=== PATIENT | male | born 1965 | race Caucasian/White ===

== ENCOUNTER 2016-10-25 10:07 | Inpatient (IN) | payer BC, OTHER ==
[2016-10-25] VITALS (19 sets, daily range): BP systolic 114–154; BP diastolic 69–84; PULSE 58–94; RESP 15–22; TEMP 98.1
[~2016-10-25] VITALS: Ht 182.9 cm; Wt 88.1 kg
[~2016-10-25 10:07] MED LIST: CIPR500T4 PO; IBUP800T25 PO; VIC PO
[2016-10-25] MEDS ORDERED: SOD CHLORIDE 0.9% 1,000 ML IV STA (10:46)
[2016-10-25] MEDS ORDERED: KETOROLAC 15 MG INJ IV STA (10:46)
[2016-10-25 11:05] LABS: ADD SCAN DIFF NO
[2016-10-25 11:13] LABS: BASOPHIL # 0.1 10^3/ul (0.0-0.1); BASOPHILS % 0.2 % (0.0-2.0); HEMATOCRIT 44.2 % (42.0-52.0); HEMOGLOBIN 14.8 g/dl (14.0-18.0); LYMPHOCYTES # 1.1 10^3/ul (0.8-2.9); LYMPHOCYTES % 5.3 % (15.0-51.0); MEAN CORPUSCULAR HEMOGLOBIN 31.4 pg (29.0-33.0); MEAN CORPUSCULAR HGB CONC 33.5 g/dl (32.0-37.0); MEAN CORPUSCULAR VOLUME 93.8 fl (82.0-101.0); MEAN PLATELET VOLUME 9.8 fl (7.4-10.4); MONOCYTE # 1.3 10^3/ul (0.3-0.9); MONOCYTES % 6.3 % (0.0-11.0); NEUTROPHIL # 17.7 10^3/ul (1.6-7.5); NEUTROPHILS % 87.7 % (39.0-77.0); PLATELET COUNT 313 10^3/UL (140-415); RED BLOOD COUNT 4.71 10^6/ul (4.70-6.10); RED CELL DISTRIBUTION WIDTH 13.1 % (11.5-14.5); WHITE BLOOD COUNT 20.2 10^3/ul (4.8-10.8)
[2016-10-25 11:18] LABS: INR 1.15; PROTIME 14.7 Sec (12.2-14.2); PT RATIO 1.1
[2016-10-25 11:20] LABS: ALBUMIN 4.3 g/dl (3.3-4.9)
[2016-10-25 11:21] LABS: POTASSIUM 4.1 mmol/L (3.5-5.1)
[2016-10-25 11:23] LABS: ALBUMIN/GLOBULIN RATIO 1.3; CREATININE 1.03 mg/dl (0.61-1.24); TOTAL PROTEIN 7.6 g/dl (6.1-8.1)
[2016-10-25 11:24] LABS: CALCIUM 9.8 mg/dl (8.4-10.2)
--- NOTE | 2016-10-25 11:40 | RADRPT ---
PROCEDURE: CT Abdomen and pelvis without contrast. CLINICAL INDICATION: Abdominal Pain TECHNIQUE: CT scan of the abdomen and pelvis with contrast was performed on a multidetector high-r esolution CT scan. . Coronal and sagittal reformatted images were obtained from the axial source i mages. Standard CT scan of the abdomen pelvis without contrast protocols were performed. The total exam CTDI equals 10.29 mGy and the total exam DLP equals 648.91 mGy-cm. One or more of the following dose reduction techniques were used: - Automated exposure control. - Adjustment of the mA and/or kV according to patient size. Use of iterative reconstruction technique. COMPARISON: None FINDINGS: There are multiple bilateral nonobstructing renal calculi ranging between 2 and 4 mm. No evidence o f hydronephrosis bilaterally. No evidence of there are calcifications in the right left bony pelvis and there are likely all vascular in nature. Definite ureteral calculi are not demonstrated. Ther e is no hydroureter bilaterally. No intra renal masses bilaterally. The urinary bladder is unremark able. There is diverticular changes involving the distal descending and especially sigmoid colon. There is wall thickening of the mid to proximal sigmoid colon with adjacent induration and trace flu id as well as numerous punctate localized extraluminal foci of gas consistent with diverticulitis an d microperforation. Note that there is no localized fluid collection to suggest abscess. No other evidence of intra-abdominal free air. The remainder of the colon is unremarkable. The stomach and s mall bowel are unremarkable. The liver spleen pancreas and adrenal glands are normal in size configuration without focal lesions. The gallbladder is unremarkable and there is no evidence of bi liary ductal dilation. No evidence of abdominal or pelvic lymphadenopathy. The lung bases are unrema rkable. There is mild degenerative changes of the lower thoracic and lumbar spine. There are no ac [place] osseous findings. There is no evidence of osteoblastic/osteolytic lesions. The abdominal aorta is unremarkable. There is right inguinal fat-containing hernia but no herniated bowel or strangula tion. IMPRESSION: 1. Sigmoid diverticulitis with numerous punctate localized extraluminal foci of gas consistent with microperforation. Mild localized induration and trace fluid but no evidence of abscess. 2. Multiple bilateral nonobstructing small renal calculi. No hydronephrosis bilaterally. 3. Right inguinal fat-containing hernia but no herniated bowel or strangulation. Dr. Ortez was telephoned this results on 10/25/2016 and 1130 hours. RPTAT:AAJJ Francisco Rosas, Physician Date Time Electronically viewed and signed by Francisco Rosas, Physician on 10/25/2016 11:39 BM/
[2016-10-25 11:46] LABS: ADD UMIC YES; URINE BILIRUBIN (Dip) NEGATIVE (NEGATIVE); URINE BLOOD (Dip) 1+ (NEGATIVE); URINE COLOR LT. YELLOW (YELLOW); URINE GLUCOSE (Dip) NEGATIVE (NEGATIVE); URINE KETONES (Dip) 40 (NEGATIVE); URINE LEUKOCYTE ESTERASE (Dip) NEGATIVE (NEGATIVE); URINE NITRITE (Dip) NEGATIVE (NEGATIVE); URINE TOTAL PROTEIN (Dip) NEGATIVE (NEGATIVE); URINE UROBILINOGEN (Dip) 0.2 E.U./dL (0.1-1.0)
[2016-10-25 11:57] LABS: URINE RBCS 0-2 /HPF (0)
[2016-10-25 11:58] LABS: BACTERIA,URINE RARE
[2016-10-25] MEDS: SOD CHLORIDE 0.9% IVPB SCH ×3 (12:23→23:36)
[2016-10-25] MEDS: PIPERACILLIN IVPB SCH ×3 (12:23→23:36)
[2016-10-25] MEDS: TAZO IVPB SCH ×3 (12:23→23:36)
--- NOTE | 2016-10-25 12:55 | ERA ---
ER Documentation Chief Complaint Date/Time DATE: 10/25/16 TIME: 12:30 Chief Complaint ABD PAIN X 2 DAYS , WAS SEEN HERE YESTERDAY , RX FOR UTI , NO RELIEF HPI This is a 51-year-old man complaining of suprapubic and mid abdominal pain beginning last night after discharge from this emergency department. He states he came to the emergency department last night for suprapubic abdominal pain and recent increased urinary frequency, and after evaluation in the ED he was diagnosed with UTI and given a dose of oral ciprofloxacin. He states an hour after getting home he developed sharp severe mid abdominal pain which radiated upward and felt abdominal "pressure". This pain continued until this morning and he came here for reevaluation. He states last month he was diagnosed with acute diverticulitis at an urgent care facility at that time he had diarrhea and left lower quadrant abdominal pain. He was treated as an outpatient with ciprofloxacin and metronidazole 2 weeks which he used completely. He states he has been pain-free for the last 2 weeks but has had intermittent tactile fevers and chills. Patient denies hematuria, no chest pain or shortness of breath, no dizziness or loss of consciousness, no headache or blurry vision. Patient denies penile discharge. ROS All systems reviewed and are negative except as per history of present illness. Medications Home Meds Active Scripts Ciprofloxacin Hcl* (Ciprofloxacin Hcl*) 500 Mg Tablet, 500 MG PO BID for 3 Days , TAB Prov:FRANCESCA AMAYA DO 10/24/16 Ibuprofen* (Motrin*) 800 Mg Tab, 800 MG PO Q6H Y for PAIN AND OR ELEVATED TEMP, #30 TAB Prov:FRANCESCA AMAYA DO 10/24/16 Discontinued Reported Medications Acetaminophen/Hydrocodone (Vicodin) 1 Tab Tab, 1 TAB PO 09/21/11 Allergies Allergies: Coded Allergies: No Known Allergy (Unverified , 09/21/11) PMhx/Soc History of Surgery: No (HERNIA REPAIR, KIDNEY STONE ) Hx Miscellaneous Medical Probl: No (NO MEDICAL PROBLEMS ) Hx Alcohol Use: Yes Hx Substance Use: No Hx Tobacco Use: No Smoking Status: Never smoker FmHx Family History: No diabetes Physical Exam Vitals Vital Signs Date Time Temp Pulse Resp B/P Pulse Ox O2 Delivery O2 Flow Rate FiO2 10/25/16 12:13 98.1 108 18 175/98 100 Room Air 10/25/16 10:10 98.1 100 18 148/94 98 Physical Exam GENERAL: Well-developed, well-nourished, well-hydrated, in no apparent distress , looks nontoxic in appearance. Afebrile HEENT: Moist mucous membranes, pink conjunctiva, no cervical spine tenderness or step-off deformities, no goiter, no jaundice or icterus, extraocular movements intact without pain. No submandibular induration, and no pharyngeal erythema NEURO: Alert and oriented 3, cranial nerves II through XII intact bilaterally, pupils equal round reactive to light, no focal deficits or facial asymmetry, sensation intact distally Strength 5/5 in upper and lower extremities bilaterally CARDIAC: Tachycardic and regular, no murmurs rubs or gallops LUNGS: Clear bilaterally no wheezing crackles or stridor ABDOMEN: Mild tenderness to touch over the hypogastrium with voluntary guarding , no rigidity SKIN: Warm and dry to touch, no abrasions, contusions, or hematomas, no lacerations, no ecchymosis, no target lesions, and without ulcers EXTREMITIES: No clubbing cyanosis or edema, calves are bilaterally symmetrical, no Homans sign, no popliteal cord sign. Distal pulses equal and bilateral PSYCH: Normal affect without agitation or irritability Result Diagram: 10/25/16 1055 10/25/16 1055 Results 24 hrs Laboratory Tests Test 10/25/16 10:31 10/25/16 10:55 Urine Bacteria RARE Urine Bilirubin NEGATIVE Urine Clarity CLEAR Urine Color LT. YELLOW Urine Epithelial Cells RARE Urine Glucose NEGATIVE% Urine Hemoglobin 1+ Urine Ketones 40 Urine Leukocyte Esterase NEGATIVE Urine Microscopic RBC 0-2/HPF Urine Microscopic WBC 0-2/HPF Urine Nitrite NEGATIVE Urine Specific [place] 1.015 Urine Total Protein NEGATIVE Urine Urobilinogen 0.2 E.U./dL Urine pH 6.0 Alanine Aminotransferase (ALT/SGPT) 27IU/L Albumin 4.3g/dl Albumin/Globulin Ratio 1.30 Alkaline Phosphatase 87IU/L Anion Gap 18 Aspartate Amino Transf (AST/SGOT) 20IU/L Basophils # 0.110^3/ul Basophils % 0.2% Blood Urea Nitrogen 11mg/dl Calcium Level 9.8mg/dl Carbon Dioxide Level 24mmol/L Chloride Level 100mmol/L Creatinine 1.03mg/dl Direct Bilirubin 0.00mg/dl Eosinophils # 0.010^3/ul Eosinophils % 0.0% Globulin 3.30g/dl Glucose Level 171mg/dl Hematocrit 44.2% Hemoglobin 14.8g/dl INR International Normalized Ratio 1.15 Indirect Bilirubin 1.0mg/dl Lipase 24U/L Lymphocytes # 1.110^3/ul Lymphocytes % 5.3% Mean Corpuscular Hemoglobin 31.4pg Mean Corpuscular Hemoglobin Concent 33.5g/dl Mean Corpuscular Volume 93.8fl Mean Platelet Volume 9.8fl Monocytes # 1.310^3/ul Monocytes % 6.3% Neutrophils # 17.710^3/ul Neutrophils % 87.7% Nucleated Red Blood Cells # 0.010^3/ul Nucleated Red Blood Cells % 0.0/100WBC Platelet Count 81935^3/UL Potassium Level 4.1mmol/L Prothrombin Time 14.7Sec Prothrombin Time Ratio 1.1 Red Blood Count 4.7110^6/ul Red Cell Distribution Width 13.1% Sodium Level 138mmol/L Total Bilirubin 1.0mg/dl Total Protein 7.6g/dl White Blood Count 20.210^3/ul Current Medications Medications (Trade) Dose Ordered Sig/Nasra Route PRN Reason Start Time Stop Time Status Last Admin Dose Admin Sodium Chloride (NS) 1,000 ml @ 1,000 mls/hr Q1H STAT IV 10/25/16 10:46 10/25/16 11:45 DC 10/25/16 11:25 Ketorolac Tromethamine 15 mg 15 mg ONCE STAT IV 10/25/16 10:46 10/25/16 10:48 DC 10/25/16 11:25 Piperacillin Sod/ Tazobactam Sod/ Sodium Chloride (Zosyn/NS) 100 ml @ 200 mls/hr Q8 IVPB 10/25/16 12:00 10/25/16 12:23 Procedures/MDM IV line was established patient was placed on groundwater monitoring technician rhythm strip revealed a sinus tachycardia at 110 bpm with upright P and T waves. Patient was afebrile. I administered 1 L normal saline intravenously and Toradol 15 mg IV 1. EKG performed, read by me: 97 bpm, normal sinus rhythm, normal axis, no acute ST segment changes, narrow QRS complex, with good R-wave progression in precordial leads. CT scan of abdomen and pelvis was performed revealing perforated acute sigmoid diverticulitis with free air. No abscess identified. Please refer to radiologist dictation for full report. I obtained emergent surgical consultation with Dr. Mauricio. He saw the patient at the bedside and recommended emergent open laparotomy. I ordered and administered Pipracil and tazobactam 4.5 g IV 1 CBC revealed a leukocytosis at 20, electrolytes were unremarkable, liver function tests were normal, coagulation profile was normal. Urinalysis was unremarkable. Departure Diagnosis: Primary Impression: Perforation of sigmoid colon due to diverticulitis FERNIE FUENTES MD Oct 25, 2016 12:40
[2016-10-25] MEDS ORDERED: LABETALOL HCL 20MG INJ IV PRN (13:30)
[2016-10-25] MEDS ORDERED: HYDROmorphONE (0.2 MG/ML) 10ML SYG IV PRN ×2 (13:30)
[2016-10-25] MEDS ORDERED: FENTAnyl 50 MCG/ML VIAL IV PRN ×2 (13:30)
[2016-10-25] MEDS ORDERED: METOCLOPRAMIDE 10 MG INJ IV PRN (13:30)
[2016-10-25] MEDS ORDERED: ONDANSETRON 4 MG INJ IV PRN ×2 (13:30→18:00)
[2016-10-25] MEDS ORDERED: MIDAZOLAM 1 MG/ML 2 ML INJ IV PRN (13:30)
[2016-10-25] MEDS ORDERED: EPHEDrine SULFATE 50 MG/5 ML SYG IV PRN (13:30)
[2016-10-25] MEDS ORDERED: MEPERIDINE 25 MG INJ IV PRN (13:30)
[2016-10-25] MEDS ORDERED: morphine (1 MG/ML) 10ML SYRINGE IV PRN ×2 (13:30)
[2016-10-25] MEDS ORDERED: hydrALAzine 20 MG INJ IV PRN (13:30)
[2016-10-25] MEDS ORDERED: DIPHENHYDRAMINE 50 MG INJ IV PRN (13:30)
[2016-10-25] MEDS ORDERED: ROCURONIUM 50 MG INJ ONE (13:32)
[2016-10-25] MEDS ORDERED: GLYCOPYRROLATE 0.4 MG INJ ONE (13:32)
[2016-10-25] MEDS ORDERED: PROPOFOL 20 ML ONE (13:32)
[2016-10-25] MEDS ORDERED: LIDOCAINE 2% (SDV) 5 ML INJ ONE (13:32)
[2016-10-25] MEDS ORDERED: SUCCINYLCHOLINE CHLORIDE 100 MG/5 ML SYG IV ONE (13:32)
[2016-10-25] MEDS ORDERED: NEOSTIGMINE 3 MG/3 ML SYRINGE ONE (13:32)
[2016-10-25] MEDS ORDERED: MEPERIDINE 100 MG INJ ONE (13:32)
[2016-10-25] MEDS ORDERED: CEFAZOLIN 1 GM INJ ONE (13:53)
[2016-10-25] MEDS ORDERED: metroNIDAZOLE 500 MG/NS (PMX) 100 ML IVPB ONE (13:53)
[2016-10-25] MEDS ORDERED: NALOXONE (0.4 MG/ML) INJ IV PRN (15:00)
[2016-10-25] MEDS ORDERED: OXYCODONE/ACETAMINOPHEN (5/325) TAB PO PRN ×2 (15:00)
[2016-10-25] MEDS ORDERED: KETOROLAC 30 MG INJ IV PRN (15:00)
[2016-10-25] MEDS: HYDROmorphONE 0.2 MG/ML PCA IV SCH ×2 (15:11→16:18)
--- NOTE | 2016-10-25 15:57 | HP ---
DATE OF ADMISSION: 10/25/2016 TYPE OF CONSULTATION: Surgical. REASON FOR CONSULTATION: Perforated diverticulitis. HISTORY OF PRESENT ILLNESS: The patient is an otherwise healthy and fit 51-year-old male who has be en being treated for acute diverticulitis. Apparently he responded nicely, but yesterday he present ed to the emergency room with urinary-like symptoms. He was treated empirically for urinary tract i nfection with Cipro. However, last night at approximately 8:00 p.m., he developed sudden severe ons et of left lower quadrant abdominal pain which had been different from the pain he has experienced e ither with this previous diverticulitis or with his urinary-like symptoms yesterday. CT scan showed a perforated sigmoid diverticulitis with a perforated sigmoid diverticulitis with extraluminal air, but no free pneumoperitoneum. Of note, is the fact that the patient's white count is 20,000. He h as had no fevers or chills. The patient's abdominal symptoms have been progressively getting worse. He is, however, awake and alert and hemodynamically stable. PAST MEDICAL HISTORY: As noted above. REVIEW OF SYSTEMS: HEAD, EARS, EYES, NOSE AND THROAT: Unremarkable. PULMONARY: No history of pneumonia or shortness of breath or asthma. CARDIAC: No history of chest pain, [place] or arrhythmia. ABDOMEN: The patient has a history of hernia repair as well as lithotripsy. EXTREMITIES: Unremarkable. OUTPATIENT MEDICATIONS: 1. Cipro. 2. Vicodin. ALLERGIES: NONE. PHYSICAL EXAMINATION: GENERAL: The patient is a fit-appearing 51-year-old male who is awake and alert and in no acute dis tress. HEAD, EARS, EYES, NOSE, THROAT: Within normal limits. LUNGS: Clear. HEART: Regular rhythm. ABDOMEN: Exquisitely tender in the left lower quadrant with guarding and plus/minus rebound. EXTREMITIES: Unremarkable. LABORATORY DATA: Patient's hematocrit is 44 with a white count of 20,200 and a left shift with 87 p olys. BUN, glucose, electrolytes are unremarkable. INR is 1.15. CT as noted above. IMPRESSION: Perforated sigmoid diverticulitis. PLAN: The patient will require exploratory laparotomy with partial colectomy and a temporary colost kavya. I have discussed the above in great detail with the patient and , who now have a reasonabl e understanding of the nature of his situation and agree to the proposed plan of therapy as outlined . Dictated By: NICHOLAS MUSA/ANNA Conf#: [id number] DID#: [id number]
[2016-10-25] MEDS ORDERED: NACL 0.9% 3 ML SYG IV SCH (16:00)
--- NOTE | 2016-10-25 16:08 | HP ---
Date/Time of Note Date/Time of Note DATE: 10/25/16 TIME: 15:59 Assessment/Plan VTE Prophylaxis VTE Prophylaxis Intervention: SCD's Lines/Catheters IV C[facility]ter Type [facility] Peripheral IV Urinary Cath still in place: No Assessment/Plan Chief Complaint/Hosp Course Impression and plan 1. Sigmoid diverticulitis with perforation. She is status post surgical intervention with temporary colostomy put in place. Follow-up with surgical recommendations. Continue postop care and analgesics. Continue IV hydration. Advance diet per surgeon 2. History of dyslipidemia. Follow-up on lipid panel. 3. Leukocytosis secondary to #1. Continue antibiotics for now. Monitor for fevers DVT prophylaxis: SCDs GERD prophylaxis: PPI Admission process 40 minutes Discussed plan of care with Dr. Merida Problems: HPI/ROS Admit Date/Time Admit Date/Time Oct 25, 2016 at 12:10 Hx of Present Illness This is a 51-year-old male with reported past medical history of dyslipidemia who came to [facility] secondary to reports of abdominal pain. According to the patient he had diverticulitis roughly around September and received 7 day antibiotic course for this. Reported that he did have some relief but still felt a little discomfort on his abdomen. He would follow up with his primary care provider as outpatient and did have laboratory blood work draw which came back unremarkable with no significant findings. Patient still presented with discomfort on his lower abdominal area. Last night patient to go to [facility] for further evaluation of his mid lower abdominal pain. He was told at that time he had urinary tract infection and antibiotic however after 1 hour from being home he had more diffuse pain and came back to [facility] for further evaluation. Patient did deny any chest pain or shortness of breath however he did have some little reports of nausea and abdominal pain. Patient did have CT scan of his abdomen that did show sigmoid diverticulitis with numerous punctate localized extraluminal foci of gas consistent with microperforation. No evidence of abscess seen. Patient also seen with incidental multiple bilateral nonobstructing small renal calculi. Patient was also noted with a white blood cell count of 20.2. He remained afebrile during admission. He was seen by general surgeon and did receive exploratory laparotomy with partial colon resection with temporary colostomy. Patient did tolerate procedure well. He was seen in PACU during evaluation. Vital signs stable. We will evaluate him for the aformentioned issues ROS 12 point review of systems obtained and entirely negative except that mentioned in history of present illness PMH/Family/Social Past Medical History Medical/surgical history 1. No calculi 2 dyslipidemia Family History Significant Family History: no pertinent family hx Social History Alcohol Use: occasionally Smoking Status: Never smoker Drug Use: none Exam/Review of Systems Vital Signs Vitals Vital Signs Date Time Temp Pulse Resp B/P Pulse Ox O2 Delivery O2 Flow Rate FiO2 10/25/16 15:38 76 19 133/76 100 Nasal Cannula 2.0 10/25/16 15:06 99.0 Exam Exam General: Status post surgical intervention. Appears comfortable at present Eyes: Pupils equal round react to light Neck: Supple nontender, no JVD Cardiac: S1-S2 auscultated regular rate Pulmonary: No adventitious lung sounds auscultated at this time GI: Minimally tender upon palpation status post surgical intervention with temporary colostomy Extremities: No edema noted bilateral lower extremities Skin: Surgical site clean dry and intact Neurologic: Alert oriented 3 Labs Result Diagram: 10/25/16 1055 10/25/16 1055 Medications Medications Current Medications Piperacillin Sod/ Tazobactam Sod/ Sodium Chloride (Zosyn/NS) 100 ml @ 200 mls/ hr Q8 IVPB Last administered on 10/25/16 12:23; Admin Dose 200 MLS/HR; Start at 12:00 Naloxone HCl (Narcan) 0.2 mg PRN PRN IV DECREASED REPIRATORY RATE; Start at 15:00 Hydromorphone HCl (Dilaudid MEDICAL ASSISTING PROGRAM DIRECTOR) Q4PCA IV Last administered on 10/25/16 15:11 ; Admin Dose 6 MG; Start 10/25/16 at 15:00 Oxycodone/ Acetaminophen (Percocet (5/ 325)) 1 tab Q4H PRN PO PAIN LEVEL 1-5; Start 10/25/16 at 15:00 Oxycodone/ Acetaminophen (Percocet (5/ 325)) 2 tab Q4H PRN PO PAIN LEVEL 6-10; Start 10/25/16 at 15:00 Ketorolac Tromethamine (Toradol) 30 mg Q6H PRN IV PAIN; Start 10/25/16 at 15:00 ; Stop 10/28/16 at 14:59 Ondansetron HCl (Zofran Inj) 4 mg Q6H PRN IV NAUSEA AND/OR VOMITING; Start 10/25 at 15:00 Diphenhydramine HCl (Benadryl) 25 mg Q6H PRN IV ITCHING; Start 10/25/16 at 15:00 Miscellaneous Information 1. Discontinue MEDICAL ASSISTING PROGRAM DIRECTOR... MEDICAL ASSISTING PROGRAM DIRECTOR IV ; Start 10/25/16 at 15:00 Acetaminophen/ Hydrocodone Bitart ([place] (5325)) 1 tab Q6H PRN PO PAIN LEVEL 6 -10; Start 10/25/16 at 18:00; Status Future Hold Acetaminophen/ Hydrocodone Bitart ([place] (10325)) 1 tab Q6H PRN PO PAIN LEVEL 6-10; Start 10/25/16 at 18:00; Status Future Hold Metoclopramide HCl (Reglan) 10 mg Q6H PRN IV NAUSEA AND/OR VOMITING; Start 10/25 at 18:00 Pantoprazole 40 mg 40 mg DAILY@06 IV ; Start 10/26/16 at 06:00 Potassium Chloride/Dextrose/ Sod Cl (D5-NS + KCl 20 Meq) 1,000 ml @ 100 mls/hr Q10H IV ; Start 10/25/16 at 14:51 Enoxaparin Sodium (Lovenox) 40 mg DAILY@07 SC ; Start 10/26/16 at 07:00 Zolpidem Tartrate (Ambien) 5 mg PRN PRN PO SLEEP; Start 10/25/16 at 18:00 Morphine Sulfate 2 mg 2 mg Q2H PRN IV PAIN; Start 10/25/16 at 18:00; Status Future Hold Cefazolin Sodium 50 ml @ 100 mls/hr Q8 IVPB ; Start 10/25/16 at 22:00 Metronidazole (Flagyl 500 Mg (Pmx)) 100 ml @ 100 mls/hr Q8 IVPB ; Start at 22:00 Ondansetron HCl (Zofran Inj) 4 mg Q6H PRN IV NAUSEA AND/OR VOMITING; Start 10/25 at 18:00 Acetaminophen (Tylenol Tab) 650 mg Q6H PRN PO PAIN LEVEL 1-3 OR FEVER; Start at 18:00 Acetaminophen (Tylenol Supp) 650 mg Q6H PRN DC PAIN LEVEL 1-3 OR FEVER; Start 10/25/16 at 18:00 Morphine Sulfate (morphine) 4 mg Q2H PRN IV PAIN; Start 10/25/16 at 18:00; Status Future Hold CAMELIA MERCADO Oct 25, 2016 16:08
[2016-10-25] MEDS: D5-NS + KCL 20 MEQ 1,000 ML IV SCH (16:15)
--- NOTE | 2016-10-25 16:32 | OPR ---
DATE OF OPERATION: 10/25/2016 POSTOPERATIVE DIAGNOSIS: Perforated diverticulitis. OPERATION PERFORMED: Sigmoid colon resection with end colostomy. SURGEON: Nicholas Mauricio MD ANESTHESIA: General. ANESTHESIOLOGIST: Dr. Hardeep MD OPERATIVE REPORT: After satisfactory general anesthesia was achieved, a Hansen catheter was placed a nd the abdomen was prepped and draped. The abdomen was entered through a lower vertical midline inc ision. Abdominal exploration showed a perforated loop of sigmoid with mesenteric abscess. This abs cess was then entered and suctioned off and cultured. The colon distal to the involved segment was divided with a contour stapler. The colon proximal to the involved segment was divided with the 75 mm green DENZEL stapler. The mesentery to the involved segment was divided with impact LigaSure. A encarnacion ture was placed on the distal colon for identification purposes. The sigmoid was thus submitted. H emostasis was total. Through a circular stab in the left lower quadrant, the proximal colon was bro ught up as an end colostomy. The abdomen was then closed in layers. The posterior rectus sheath an d peritoneum were closed with running #1 Vicryl. Anterior rectus sheath and fascia were closed with interrupted #2 Vicryl suture. Skin was closed with huseyin. The colostomy was matured primarily. It was secured at 4 corners with a 4-0 Vicryl to skin. The staple line was excised and circumferen tial row of seromuscular to skin sutures were made achieving a colostomy which was tension free and well vascularized. OPERATIVE BLOOD LOSS: Less than 50 mL. Sponge, needle and instrument counts: Reported as correct x2. The patient tolerated the procedure well and without incident or complication. Dictated By: NICHOLAS MUSA/ANNA Conf#: [id number] DID#: [id number]
[2016-10-25] MEDS ORDERED: HYDROCODONE/APAP (5/325) TAB PO PRN (18:00)
[2016-10-25] MEDS ORDERED: ACETAMINOPHEN 650 MG SUPP PR PRN (18:00)
[2016-10-25] MEDS ORDERED: HYDROCODONE/APAP (10/325) TAB PO PRN (18:00)
[2016-10-25] MEDS ORDERED: morphine 2 MG INJ IV PRN ×2 (18:00)
[2016-10-25] MEDS ORDERED: ZOLPIDEM 5 MG TAB PO PRN (18:00)
[2016-10-25] MEDS ORDERED: ACETAMINOPHEN 325 MG TAB PO PRN (18:00)
[2016-10-25] MEDS: ONDANSETRON 4 MG INJ IV PRN (20:52)
[2016-10-25] MEDS: CEFAZOLIN 1 GM/50 ML (PMX) 50 ML IVPB SCH (21:06)
[2016-10-25] MEDS ORDERED: CEFAZOLIN 1 GM/50 ML (PMX) 50 ML IVPB SCH (22:00)
[2016-10-25] MEDS: metroNIDAZOLE 500 MG/NS (PMX) 100 ML IVPB SCH (22:00)
[2016-10-26] MEDS: D5-NS + KCL 20 MEQ 1,000 ML IV SCH ×3 (00:51→20:38)
[2016-10-26 05:20] LABS: ADD SCAN DIFF NO
[2016-10-26 05:36] LABS: BASOPHILS % 0.2 % (0.0-2.0); EOSINOPHILS % 0.1 % (0.0-7.0); HEMATOCRIT 36.9 % (42.0-52.0); HEMOGLOBIN 12.2 g/dl (14.0-18.0); LYMPHOCYTES # 1.1 10^3/ul (0.8-2.9); MEAN CORPUSCULAR HEMOGLOBIN 31.5 pg (29.0-33.0); MEAN CORPUSCULAR HGB CONC 33.1 g/dl (32.0-37.0); MEAN CORPUSCULAR VOLUME 95.3 fl (82.0-101.0); MEAN PLATELET VOLUME 9.9 fl (7.4-10.4); MONOCYTE # 1.1 10^3/ul (0.3-0.9); MONOCYTES % 8.8 % (0.0-11.0); NEUTROPHIL # 10.2 10^3/ul (1.6-7.5); NEUTROPHILS % 81.5 % (39.0-77.0); PLATELET COUNT 288 10^3/UL (140-415); RED BLOOD COUNT 3.87 10^6/ul (4.70-6.10); RED CELL DISTRIBUTION WIDTH 13.2 % (11.5-14.5); WHITE BLOOD COUNT 12.5 10^3/ul (4.8-10.8)
[2016-10-26 05:48] LABS: ALBUMIN 3.5 g/dl (3.3-4.9)
[2016-10-26 05:49] LABS: POTASSIUM 4.4 mmol/L (3.5-5.1)
[2016-10-26 05:51] LABS: ALBUMIN/GLOBULIN RATIO 1.29; BILIRUBIN,INDIRECT 0.8 mg/dl (0-1.1); BILIRUBIN,TOTAL 0.8 mg/dl (0.2-1.3); CREATININE 1.03 mg/dl (0.61-1.24); TOTAL PROTEIN 6.2 g/dl (6.1-8.1)
[2016-10-26 05:52] LABS: CALCIUM 8.7 mg/dl (8.4-10.2); CHOL/HDL RATIO 4.1 RATIO; MAGNESIUM 2.1 mg/dl (1.7-2.5); PHOSPHORUS 2.5 mg/dl (2.5-4.9); POTASSIUM 4.7 mmol/L (3.5-5.1)
[2016-10-26] MEDS: CEFAZOLIN 1 GM/50 ML (PMX) 50 ML IVPB SCH ×3 (05:53→22:23)
[2016-10-26] MEDS: PANTOPRAZOLE 40 MG INJ IV SCH (05:53)
[2016-10-26 05:54] LABS: CREATININE 0.98 mg/dl (0.61-1.24)
[2016-10-26 05:55] LABS: CALCIUM 8.7 mg/dl (8.4-10.2)
[2016-10-26 05:57] LABS: T3 UPTAKE 44.9 % (23.5-40.5)
[2016-10-26 06:12] LABS: THYROID STIMULATING HORMONE 2.22 MIU/L (0.465-4.680)
[2016-10-26] MEDS: ENOXAPARIN 40 MG/0.4 ML SYG SC SCH (06:35)
[2016-10-26] MEDS: metroNIDAZOLE 500 MG/NS (PMX) 100 ML IVPB SCH ×3 (06:36→22:22)
[2016-10-26 07:20] VITALS: BP 146/82; RESP 18
[2016-10-26] MEDS: TAZO IVPB SCH (07:31)
[2016-10-26] MEDS: PIPERACILLIN IVPB SCH (07:31)
[2016-10-26] MEDS: SOD CHLORIDE 0.9% IVPB SCH (07:31)
[2016-10-26] MEDS: ONDANSETRON 4 MG INJ IV PRN (09:22)
[2016-10-26] MEDS: METOCLOPRAMIDE 10 MG INJ IV PRN ×2 (10:28→17:56)
--- NOTE | 2016-10-26 11:51 | PN ---
DATE: 10/26/2016 TIME OF EVALUATION: 10 a.m. SUBJECTIVE DATA: Complains of abdominal pain. Remains on a Dilaudid DATA ANALYST REPORT WRITER pump. OBJECTIVE DATA: VITAL SIGNS: Temperature 97.9, pulse rate 86, respiratory rate 20, blood pressure 146/82, oxygen saturation 98% on low flow O2. GENERAL: This is a well-built, well-nourished male patient lying in bed in no apparent distress. HEENT: Head normocephalic and atraumatic. Eyes: Anicteric sclerae. Conjunctivae clear. ENT: Nasal septum is midline. Oral mucosa is moist. NECK: Supple. No JVD noticed. RESPIRATORY: Bilaterally clear to auscultation. No adventitious breath sounds. No rales. No use of accessory muscles of respiration. CARDIAC: Regular rate and rhythm. No murmurs heard. ABDOMEN: Left lower quadrant colostomy in place. Dressing over the surgical incision. GENITOURINARY: Deferred. EXTREMITIES: No cyanosis, no clubbing, no edema. Peripheral pulses are palpable. NEUROLOGIC: The patient is awake, alert and oriented. Cranial nerves are grossly intact. LABORATORY AND DIAGNOSTIC DATA: WBC 12.5, hemoglobin 12.2, hematocrit 36.9, platelet count 288. Sodium 130, potassium 4.4, chloride 100, carbon dioxide 28 , anion gap 14, BUN 8, creatinine 1.06, glucose 136, calcium 8.7, phosphorus 2.5 , magnesium 2.1. ASSESSMENT AND PLAN: 1. Perforated diverticulitis. Status post sigmoid colon resection with end colostomy. Continue postoperative care. Encourage frequent ambulation. Encourage use of incentive spirometry Advancement of diet as per general surgery. 2. Leukocytosis, most probably secondary to #1. Continue antibiotics. The patient remains afebrile. 3. Normocytic normochromic anemia. We will monitor the H and H closely. Etiology unclear. 4. Fluid, electrolytes and nutrition. Continue clear liquid diet. Advancement of diet as per surgery. 5. Deep vein thrombosis prophylaxis with bilateral sequential compression devices. 6. Gastrointestinal prophylaxis with proton pump inhibitors. PLAN: 1. Continue incentive spirometry. 2. Encourage frequent ambulation. 3. Advancement of diet as per surgery. 4. Discontinue Hansen catheter. The case was discussed with Dr. Carroll. DON CARROLL MD, AM/ANNA Conf#: [id number] [facility]#: [id number] MTDD
--- NOTE | 2016-10-26 13:19 | PN ---
DATE: 10/26/2016 SUBJECTIVE: Postoperative day #1. Patient is markedly symptomatically improved. He has been afebr ile since surgery. His white count has come down to 12,500. OBJECTIVE: his abdominal examination is benign. The incision is clean, and the colostomy is viable. The Hansen has been removed. PLAN: Continue medical management. Dictated By: NICHOLAS MUSA/ANNA Conf#: [id number] DID#: [id number]
[2016-10-26] MEDS ORDERED: morphine 4 MG/ML VIAL IV PRN ×2 (16:30→17:00)
[2016-10-26] MEDS ORDERED: morphine 2 MG INJ IV PRN (17:00)
[2016-10-26] MEDS ORDERED: HYDROCODONE/APAP (5/325) TAB PO PRN ×2 (17:00)
[2016-10-26 19:28] VITALS: BP 148/87; RESP 16
[2016-10-26] MEDS: BISACODYL (EC) 5 MG TAB PO ONE ×2 (20:39→21:00)
[2016-10-27] MEDS: ONDANSETRON 4 MG INJ IV PRN (01:30)
[2016-10-27] MEDS: metroNIDAZOLE 500 MG/NS (PMX) 100 ML IVPB SCH (05:44)
[2016-10-27] MEDS: PANTOPRAZOLE 40 MG INJ IV SCH (05:44)
[2016-10-27] MEDS: D5-NS + KCL 20 MEQ 1,000 ML IV SCH ×2 (06:31→18:31)
[2016-10-27] MEDS: ENOXAPARIN 40 MG/0.4 ML SYG SC SCH (06:32)
[2016-10-27] MEDS: CEFAZOLIN 1 GM/50 ML (PMX) 50 ML IVPB SCH (06:37)
--- NOTE | 2016-10-27 07:30 | PN ---
Date/Time of Note Date/Time of Note DATE: 10/27/16 TIME: 07:29 Assessment/Plan VTE Prophylaxis VTE Prophylaxis Intervention: SCD's Lines/Catheters IV [facility]from [facility]): Peripheral IV Urinary Cath still in place: No Assessment/Plan Chief Complaint/Hosp Course 1. Perforated diverticulitis. Status post sigmoid colon resection with end colostomy. Continue postoperative care. Encourage frequent ambulation. Encourage use of incentive spirometry Advancement of diet as per general surgery. 2. Leukocytosis. Most probably secondary to #1. Continue antibiotics. The patient remains afebrile. 3. Normocytic, normochromic anemia. Will monitor the H and H closely. Etiology unclear. Transfuse as needed. 4. Fluid, electrolytes and nutrition. Advancement of diet as per surgery. 5. Deep vein thrombosis prophylaxis with bilateral sequential compression devices. 6. Gastrointestinal prophylaxis with proton pump inhibitors. PLAN: 1. Continue incentive spirometry. 2. Encourage frequent ambulation. 3. Advancement of diet as per surgery. The case was discussed with Dr. Carroll. Problems: Subjective 24 Hr Interval Summary Free Text/Dictation Complains of sore throat. Had multiple episodes of vomiting last night. Exam/Review of Systems Vital Signs Vitals Vital Signs Date Time Temp Pulse Resp B/P Pulse Ox O2 Delivery O2 Flow Rate FiO2 10/26/16 19:28 100.4 94 16 148/87 96 10/26/16 08:10 Nasal Cannula 2.0 Intake and Output 10/26/16 10/26/16 10/27/16 15:00 23:00 07:00 Intake Total 2380 ml 600 ml Output Total 3550 ml 1400 ml Balance -1170 ml -800 ml Exam GENERAL: This is a well-built, well-nourished male patient lying in bed in no apparent distress. HEENT: Head normocephalic and atraumatic. Eyes: Anicteric sclerae. Conjunctivae clear. ENT: Nasal septum is midline. Oral mucosa is moist. NECK: Supple. No JVD noticed. RESPIRATORY: Bilaterally clear to auscultation. No adventitious breath sounds. No rales. No use of accessory muscles of respiration. CARDIAC: Regular rate and rhythm. No murmurs heard. ABDOMEN: Left lower quadrant colostomy in place. Dressing over the surgical incision. GENITOURINARY: Deferred. EXTREMITIES: No cyanosis, no clubbing, no edema. Peripheral pulses are palpable. NEUROLOGIC: The patient is awake, alert and oriented. Cranial nerves are grossly intact. Results Result Diagram: 10/26/16 0415 10/26/16 0415 Medications Medications Current Medications Naloxone HCl (Narcan) 0.2 mg PRN PRN IV DECREASED REPIRATORY RATE; Start at 15:00 Oxycodone/ Acetaminophen (Percocet (5/ 325)) 1 tab Q4H PRN PO PAIN LEVEL 1-5; Start 10/25/16 at 15:00 Oxycodone/ Acetaminophen (Percocet (5/ 325)) 2 tab Q4H PRN PO PAIN LEVEL 6-10; Start 10/25/16 at 15:00 Ketorolac Tromethamine (Toradol) 30 mg Q6H PRN IV PAIN; Start 10/25/16 at 15:00 ; Stop 10/28/16 at 14:59 Ondansetron HCl (Zofran Inj) 4 mg Q6H PRN IV NAUSEA AND/OR VOMITING Last administered on 10/27/16 01:30; Admin Dose 4 MG; Start 10/25/16 at 15:00 Diphenhydramine HCl (Benadryl) 25 mg Q6H PRN IV ITCHING; Start 10/25/16 at 15:00 Metoclopramide HCl (Reglan) 10 mg Q6H PRN IV NAUSEA AND/OR VOMITING Last administered on 10/26/16 17:56; Admin Dose 10 MG; Start 10/25/16 at 18:00 Pantoprazole 40 mg 40 mg DAILY@06 IV Last administered on 10/27/16 05:44; Admin Dose 40 MG; Start 10/26/16 at 06:00 Potassium Chloride/Dextrose/ Sod Cl (D5-NS + KCl 20 Meq) 1,000 ml @ 100 mls/hr Q10H IV Last administered on 10/27/16 06:31; Admin Dose 100 MLS/HR; Start at 14:51 Enoxaparin Sodium (Lovenox) 40 mg DAILY@07 SC Last administered on 10/27/16 06: 32; Admin Dose 40 MG; Start 10/26/16 at 07:00 Zolpidem Tartrate 5 mg 5 mg PRN PRN PO SLEEP; Start 10/25/16 at 18:00 Cefazolin Sodium 50 ml @ 100 mls/hr Q8 IVPB Last administered on 10/27/16 06: 37; Admin Dose 100 MLS/HR; Start 10/25/16 at 22:00 Metronidazole (Flagyl 500 Mg (Pmx)) 100 ml @ 100 mls/hr Q8 IVPB Last administered on 10/27/16 05:44; Admin Dose 100 MLS/HR; Start 10/25/16 at 22:00 Ondansetron HCl (Zofran Inj) 4 mg Q6H PRN IV NAUSEA AND/OR VOMITING; Start 10/25 at 18:00 Acetaminophen (Tylenol Tab) 650 mg Q6H PRN PO PAIN LEVEL 1-3 OR FEVER; Start at 18:00 Acetaminophen (Tylenol Supp) 650 mg Q6H PRN [place] PAIN LEVEL 1-3 OR FEVER; Start 10/25/16 at 18:00 Acetaminophen/ Hydrocodone Bitart ([place] (5/325)) 1 tab Q4H PRN PO Pain; Start 10/26/16 at 17:00 Acetaminophen/ Hydrocodone Bitart ([place] (5/325)) 2 tab Q4H PRN PO Pain; Start 10/26/16 at 17:00 Morphine Sulfate (morphine) 2 mg Q4H PRN IV Pain; Start 10/26/16 at 17:00 Morphine Sulfate (morphine) 4 mg Q4H PRN IV Pain; Start 10/26/16 at 17:00 DON MARTINEZ NP Oct 27, 2016 07:29
[2016-10-27 07:41] VITALS: BP 157/89; RESP 18
[2016-10-27 08:21] LABS: ADD SCAN DIFF NO
[2016-10-27 08:28] LABS: BASOPHILS % 0.2 % (0.0-2.0); HEMATOCRIT 38.8 % (42.0-52.0); HEMOGLOBIN 12.9 g/dl (14.0-18.0); LYMPHOCYTES # 1.1 10^3/ul (0.8-2.9); LYMPHOCYTES % 7.5 % (15.0-51.0); MEAN CORPUSCULAR HEMOGLOBIN 31.4 pg (29.0-33.0); MEAN CORPUSCULAR HGB CONC 33.2 g/dl (32.0-37.0); MEAN CORPUSCULAR VOLUME 94.4 fl (82.0-101.0); MEAN PLATELET VOLUME 9.4 fl (7.4-10.4); MONOCYTE # 1.3 10^3/ul (0.3-0.9); MONOCYTES % 9.2 % (0.0-11.0); NEUTROPHIL # 11.7 10^3/ul (1.6-7.5); NEUTROPHILS % 82.7 % (39.0-77.0); PLATELET COUNT 342 10^3/UL (140-415); RED BLOOD COUNT 4.11 10^6/ul (4.70-6.10); RED CELL DISTRIBUTION WIDTH 13.2 % (11.5-14.5); WHITE BLOOD COUNT 14.1 10^3/ul (4.8-10.8)
[2016-10-27 08:42] LABS: ALBUMIN 3.4 g/dl (3.3-4.9)
[2016-10-27 08:43] LABS: POTASSIUM 4.6 mmol/L (3.5-5.1)
[2016-10-27 08:44] LABS: MAGNESIUM 2.2 mg/dl (1.7-2.5); PHOSPHORUS 2.8 mg/dl (2.5-4.9)
[2016-10-27 08:45] LABS: ALBUMIN/GLOBULIN RATIO 1.13; BILIRUBIN,INDIRECT 0.4 mg/dl (0-1.1); BILIRUBIN,TOTAL 0.4 mg/dl (0.2-1.3); CREATININE 0.84 mg/dl (0.61-1.24); TOTAL PROTEIN 6.4 g/dl (6.1-8.1)
[2016-10-27 08:46] LABS: CALCIUM 9.3 mg/dl (8.4-10.2)
--- NOTE | 2016-10-27 09:29 | PN ---
DATE: 10/27/2016 Postoperative day #2. The patient's maximum temperature was 100.4. His white blood cell count remains slightly elevated a t 14,100. Yesterday the patient had several episodes of emesis, however, today he has had explosive bowel movements through his colostomy. His nausea has resolved. PHYSICAL EXAMINATION: The abdomen is soft and flat. The incision is clean. The colostomy is viabl e and functioning. PLAN: Resume clear liquids and advance diet as tolerated. Dictated By: NICHOLAS MUSA/ANNA Conf#: [id number] DID#: [id number]
[2016-10-27] MEDS: PIPER-TAZO 3.375 GM IV (PMX) 100 ML IVPB SCH ×3 (13:04→23:44)
[2016-10-27] MEDS ORDERED: CEPASTAT LOZENGE MT PRN (16:30)
[2016-10-27 19:53] VITALS: BP 149/88; RESP 18
[2016-10-28] MEDS: D5-NS + KCL 20 MEQ 1,000 ML IV SCH ×4 (02:51→18:53)
[2016-10-28] MEDS: PANTOPRAZOLE 40 MG INJ IV SCH (05:38)
[2016-10-28] MEDS: PIPER-TAZO 3.375 GM IV (PMX) 100 ML IVPB SCH ×3 (05:38→18:53)
[2016-10-28] MEDS: ENOXAPARIN 40 MG/0.4 ML SYG SC SCH (05:40)
[2016-10-28 05:43] LABS: ADD SCAN DIFF NO
[2016-10-28 05:53] LABS: BASOPHILS % 0.5 % (0.0-2.0); EOSINOPHILS # 0.1 10^3/ul (0.0-0.5); EOSINOPHILS % 0.9 % (0.0-7.0); LYMPHOCYTES # 1.8 10^3/ul (0.8-2.9); LYMPHOCYTES % 21.2 % (15.0-51.0); MEAN CORPUSCULAR HEMOGLOBIN 31.7 pg (29.0-33.0); MEAN CORPUSCULAR HGB CONC 33.3 g/dl (32.0-37.0); MEAN CORPUSCULAR VOLUME 95.2 fl (82.0-101.0); MEAN PLATELET VOLUME 9.6 fl (7.4-10.4); MONOCYTE # 0.9 10^3/ul (0.3-0.9); NEUTROPHIL # 5.8 10^3/ul (1.6-7.5); NEUTROPHILS % 66.9 % (39.0-77.0); PLATELET COUNT 355 10^3/UL (140-415); RED BLOOD COUNT 3.78 10^6/ul (4.70-6.10); RED CELL DISTRIBUTION WIDTH 13.2 % (11.5-14.5); WHITE BLOOD COUNT 8.7 10^3/ul (4.8-10.8)
[2016-10-28 06:16] LABS: MAGNESIUM 2.1 mg/dl (1.7-2.5); PHOSPHORUS 3.6 mg/dl (2.5-4.9)
[2016-10-28 06:35] LABS: ALBUMIN 3.3 g/dl (3.3-4.9); POTASSIUM 4.7 mmol/L (3.5-5.1)
[2016-10-28 06:37] LABS: BILIRUBIN,INDIRECT 0.4 mg/dl (0-1.1); BILIRUBIN,TOTAL 0.4 mg/dl (0.2-1.3); CREATININE 0.94 mg/dl (0.61-1.24)
[2016-10-28 06:38] LABS: ALBUMIN/GLOBULIN RATIO 1.13; CALCIUM 9.1 mg/dl (8.4-10.2); TOTAL PROTEIN 6.2 g/dl (6.1-8.1)
[2016-10-28 07:50] VITALS: BP 150/77; RESP 19
--- NOTE | 2016-10-28 09:27 | PN ---
Date/Time of Note Date/Time of Note DATE: 10/28/16 TIME: 09:26 Assessment/Plan VTE Prophylaxis VTE Prophylaxis Intervention: ambulation, SCD's Lines/Catheters IV Catheter Type (from [facility]): Peripheral IV Urinary Cath still in place: No Assessment/Plan Chief Complaint/Hosp Course 1. Perforated diverticulitis. Status post sigmoid colon resection with end colostomy. Continue postoperative care. Encourage frequent ambulation. Encourage use of incentive spirometry Advancement of diet as per general surgery. 2. Leukocytosis. Most probably secondary to #1. Continue antibiotics. The patient remains afebrile. 3. Normocytic, normochromic anemia. Will monitor the H and H closely. Etiology unclear. Transfuse as needed. 4. Fluid, electrolytes and nutrition. Advancement of diet as per surgery. 5. Deep vein thrombosis prophylaxis with bilateral sequential compression devices. 6. Gastrointestinal prophylaxis with proton pump inhibitors. PLAN: 1. Continue incentive spirometry. 2. Encourage frequent ambulation. 3. Advancement of diet as per surgery. The case was discussed with Dr. Carroll. Problems: Subjective 24 Hr Interval Summary Free Text/Dictation "Feeling well." Tolerating oral intake. Exam/Review of Systems Vital Signs Vitals Vital Signs Date Time Temp Pulse Resp B/P Pulse Ox O2 Delivery O2 Flow Rate FiO2 10/28/16 07:50 98.4 55 19 150/77 99 10/26/16 08:10 Nasal Cannula 2.0 Intake and Output 10/27/16 10/27/16 10/28/16 15:00 23:00 07:00 Intake Total 1150 ml 1480 ml 1600 ml Output Total 200 ml 900 ml Balance 1150 ml 1280 ml 700 ml Exam GENERAL: This is a well-built, well-nourished male patient lying in bed in no apparent distress. HEENT: Head normocephalic and atraumatic. Eyes: Anicteric sclerae. Conjunctivae clear. ENT: Nasal septum is midline. Oral mucosa is moist. NECK: Supple. No JVD noticed. RESPIRATORY: Bilaterally clear to auscultation. No adventitious breath sounds. No rales. No use of accessory muscles of respiration. CARDIAC: Regular rate and rhythm. No murmurs heard. ABDOMEN: Left lower quadrant colostomy in place. Dressing over the surgical incision. GENITOURINARY: Deferred. EXTREMITIES: No cyanosis, no clubbing, no edema. Peripheral pulses are palpable. NEUROLOGIC: The patient is awake, alert and oriented. Cranial nerves are grossly intact. Results Result Diagram: 10/28/16 0455 10/28/16 0455 Results 24 hrs Laboratory Tests Test 10/28/16 04:55 Alanine Aminotransferase (ALT/SGPT) 24 Albumin 3.3 Albumin/Globulin Ratio 1.13 Alkaline Phosphatase 67 Anion Gap 16 Aspartate Amino Transf (AST/SGOT) 17 Basophils # 0.0 Basophils % 0.5 Blood Urea Nitrogen 13 Calcium Level 9.1 Carbon Dioxide Level 28 Chloride Level 105 Creatinine 0.94 Direct Bilirubin 0.00 Eosinophils # 0.1 Eosinophils % 0.9 Globulin 2.90 Glucose Level 120 Hematocrit 36.0 L Hemoglobin 12.0 L Indirect Bilirubin 0.4 Lymphocytes # 1.8 Lymphocytes % 21.2 Magnesium Level 2.1 Mean Corpuscular Hemoglobin 31.7 Mean Corpuscular Hemoglobin Concent 33.3 Mean Corpuscular Volume 95.2 Mean Platelet Volume 9.6 Monocytes # 0.9 Monocytes % 10.0 Neutrophils # 5.8 Neutrophils % 66.9 Nucleated Red Blood Cells # 0.0 Nucleated Red Blood Cells % 0.0 Phosphorus Level 3.6 Platelet Count 355 Potassium Level 4.7 Red Blood Count 3.78 L Red Cell Distribution Width 13.2 Sodium Level 144 Total Bilirubin 0.4 Total Protein 6.2 White Blood Count 8.7 # Medications Medications Current Medications Naloxone HCl (Narcan) 0.2 mg PRN PRN IV DECREASED REPIRATORY RATE; Start at 15:00 Oxycodone/ Acetaminophen (Percocet (5/ 325)) 1 tab Q4H PRN PO PAIN LEVEL 1-5; Start 10/25/16 at 15:00 Oxycodone/ Acetaminophen (Percocet (5/ 325)) 2 tab Q4H PRN PO PAIN LEVEL 6-10; Start 10/25/16 at 15:00 Ketorolac Tromethamine (Toradol) 30 mg Q6H PRN IV PAIN; Start 10/25/16 at 15:00 ; Stop 10/28/16 at 14:59 Ondansetron HCl (Zofran Inj) 4 mg Q6H PRN IV NAUSEA AND/OR VOMITING Last administered on 10/27/16t 01:30; Admin Dose 4 MG; Start 10/25/16 at 15:00 Diphenhydramine HCl (Benadryl) 25 mg Q6H PRN IV ITCHING; Start 10/25/16 at 15:00 Metoclopramide HCl (Reglan) 10 mg Q6H PRN IV NAUSEA AND/OR VOMITING Last administered on 10/26/16 17:56; Admin Dose 10 MG; Start 10/25/16 at 18:00 Pantoprazole 40 mg 40 mg DAILY@06 IV Last administered on 10/28/16 05:38; Admin Dose 40 MG; Start 10/26/16 at 06:00 Potassium Chloride/Dextrose/ Sod Cl (D5-NS + KCl 20 Meq) 1,000 ml @ 100 mls/hr Q10H IV Last administered on 10/28/16 05:41; Admin Dose 100 MLS/HR; Start at 14:51 Enoxaparin Sodium (Lovenox) 40 mg DAILY@07 SC Last administered on 10/28/16 05: 40; Admin Dose 40 MG; Start 10/26/16 at 07:00 Zolpidem Tartrate (Ambien) 5 mg PRN PRN PO SLEEP; Start 10/25/16 at 18:00 Ondansetron HCl (Zofran Inj) 4 mg Q6H PRN IV NAUSEA AND/OR VOMITING; Start 10/25 at 18:00 Acetaminophen (Tylenol Tab) 650 mg Q6H PRN PO PAIN LEVEL 1-3 OR FEVER; Start at 18:00 Acetaminophen (Tylenol Supp) 650 mg Q6H PRN [place] PAIN LEVEL 1-3 OR FEVER; Start 10/25/16 at 18:00 Acetaminophen/ Hydrocodone Bitart ([place] (5/325)) 1 tab Q4H PRN PO Pain; Start 10/26/16 at 17:00 Acetaminophen/ Hydrocodone Bitart ([place] (5/325)) 2 tab Q4H PRN PO Pain; Start 10/26/16 at 17:00 Morphine Sulfate (morphine) 2 mg Q4H PRN IV Pain; Start 10/26/16 at 17:00 Morphine Sulfate 4 mg 4 mg Q4H PRN IV Pain; Start 10/26/16 at 17:00 Piperacillin Sod/ Tazobactam Sod (Zosyn 3.375gm/ 100 ml (Pmx)) 100 ml @ 200 mls /hr Q6 IVPB Last administered on 10/28/16t 05:38; Admin Dose 200 MLS/HR; Start 10/27/16 at 12:30 Phenol (Cepastat Lozenge) 1 lozenge Q1H PRN MT SORE THROAT; Start 10/27/16 at 16 :30 DON MARTINEZ NP Oct 28, 2016 09:27
--- NOTE | 2016-10-28 18:25 | PN ---
DATE: Postoperative day #3. The patient has been afebrile throughout. He is markedly symptomatically imp roved and now is tolerating a general diet. OBJECTIVE: ABDOMEN: Benign. His colostomy is functioning. LABORATORY DATA: Hematocrit 36, white count 8700 with resolution of left shift. IMPRESSION: Excellent progress. PLAN: The patient should be able to be discharged tomorrow. Dictated By: NICHOLAS MUSA/ANNA Conf#: [id number] DID#: [id number]
[2016-10-28 19:00] VITALS: BP 146/83; RESP 18
[2016-10-28 19:58] VITALS: Ht 182.9 cm; Wt 88.1 kg
[2016-10-28] MEDS: DIPHENHYDRAMINE 50 MG INJ IV PRN (22:26)
[2016-10-29] MEDS: PIPER-TAZO 3.375 GM IV (PMX) 100 ML IVPB SCH ×3 (00:07→11:42)
[2016-10-29 05:43] LABS: ADD SCAN DIFF NO
[2016-10-29 05:44] LABS: BASOPHIL # 0.1 10^3/ul (0.0-0.1); EOSINOPHILS # 0.5 10^3/ul (0.0-0.5); EOSINOPHILS % 6.5 % (0.0-7.0); HEMATOCRIT 35.9 % (42.0-52.0); HEMOGLOBIN 12.1 g/dl (14.0-18.0); LYMPHOCYTES # 2.4 10^3/ul (0.8-2.9); LYMPHOCYTES % 31.2 % (15.0-51.0); MEAN CORPUSCULAR HEMOGLOBIN 32.1 pg (29.0-33.0); MEAN CORPUSCULAR HGB CONC 33.7 g/dl (32.0-37.0); MEAN CORPUSCULAR VOLUME 95.2 fl (82.0-101.0); MEAN PLATELET VOLUME 9.5 fl (7.4-10.4); MONOCYTE # 0.8 10^3/ul (0.3-0.9); MONOCYTES % 9.8 % (0.0-11.0); NEUTROPHIL # 3.9 10^3/ul (1.6-7.5); NEUTROPHILS % 50.6 % (39.0-77.0); PLATELET COUNT 339 10^3/UL (140-415); RED BLOOD COUNT 3.77 10^6/ul (4.70-6.10); RED CELL DISTRIBUTION WIDTH 13.2 % (11.5-14.5); WHITE BLOOD COUNT 7.7 10^3/ul (4.8-10.8)
[2016-10-29 05:57] LABS: ALBUMIN 3.1 g/dl (3.3-4.9)
[2016-10-29 05:58] LABS: PHOSPHORUS 3.7 mg/dl (2.5-4.9); POTASSIUM 4.4 mmol/L (3.5-5.1)
[2016-10-29 05:59] LABS: CREATININE 0.91 mg/dl (0.61-1.24)
[2016-10-29 06:00] LABS: ALBUMIN/GLOBULIN RATIO 1.1; BILIRUBIN,INDIRECT 0.2 mg/dl (0-1.1); BILIRUBIN,TOTAL 0.2 mg/dl (0.2-1.3); TOTAL PROTEIN 5.9 g/dl (6.1-8.1)
[2016-10-29] MEDS: PANTOPRAZOLE 40 MG INJ IV SCH (06:01)
[2016-10-29] MEDS: ENOXAPARIN 40 MG/0.4 ML SYG SC SCH (06:06)
[2016-10-29 08:29] VITALS: BP 182/92; RESP 18
[2016-10-29] MEDS: D5-NS + KCL 20 MEQ 1,000 ML IV SCH (08:51)
[2016-10-29] MEDS ORDERED: hydrALAzine 20 MG INJ IV ONE (09:06)
--- NOTE | 2016-10-29 10:26 | PN ---
DATE: 10/29/2016 HISTORY: Postoperative day #4. The patient remains afebrile with a normal white count. His abdomi nal examination is benign and he is tolerating a regular diet with normal bowel function. IMPRESSION: Excellent recovery. PLAN: The patient is surgically cleared for discharge home today. Office follow up 1 week for stap le removal. The patient will require followup home health with enterostomal therapy followup. Dictated By: NICHOLAS MUSA/ANNA Conf#: [id number] DID#: [id number]
--- NOTE | 2016-10-29 11:10 | PDOCDIS ---
Discharge Instructions DIAGNOSIS Discharge Diagnosis: Perforated diverticulitis CONDITION Patient Condition: Stable HOME CARE INSTRUCTIONS: Diet Instructions: Regular FOLLOW UP/APPOINTMENTS Appointments Paulie Mauricio MD Specialty: General Surgery Office Address: [address] [place] [address] Office OTHER ORDERS: Other Orders: 1. Regular diet as tolerated. 2. Keep incisions clean and dry. Use mild soap and pat dry the incisions. Please check with Dr. Mauricio regarding showering. 3. Take medications as needed for pain. 4. Call the surgeon or go to the nearest ER if you have severe abdominal pain despite pain medications. 5. Call the surgeon or go to the nearest ER if you notice any bleeding or secretions coming out of the incision sites. Also call the surgeon if you notice any blood in stool, if you have persistent fevers, or any other unusual signs or symptoms. 6. Follow-up with the surgeon Dr. Mauricio in 7 days for incision check. 7. Avoid heavy lifting [more than 25 pounds] for 8 weeks. DON MARTINEZ NP Oct 29, 2016 11:10
[2016-10-29] MEDS ORDERED: TRAM-40 PO (11:17)
[2016-10-29] MEDS ORDERED: AMO500 PO (11:17)
[2016-10-29] MEDS ORDERED: BACTDS PO (11:17)
--- NOTE | 2016-10-29 12:51 | DS ---
DATE OF ADMISSION: 10/25/2016 DATE OF DISCHARGE: 10/29/2016 FINAL DIAGNOSES: 1. Perforated diverticulitis. Status post sigmoid colon resection with end colostomy. 2. Status post sepsis secondary to underlying perforated diverticulitis. 3. Normocytic normochromic anemia. 4. Accelerated hypertension. 5. Possible underlying pre-hypertension. 6. Dyslipidemia (history). CONSULTATIONS: Dr. Paulie Mauricio, general surgery. HOSPITAL COURSE: This is a 51-year-old male with past medical history of dyslipidemia who came to the emergency room with reported abdominal pain. The patient reported taking antibiotics for diverticulitis roughly around 2016 and he completed a 7-day antibiotic course. The patient reported some relief from the antibiotic, but he still had some abdominal discomfort. The patient continued to have abdominal discomfort, hence the patient came to the emergency room at [facility]. The patient did have a CT scan of the abdomen and pelvis in the emergency room that showed sigmoid diverticulitis with numerous punctate extraluminal foci of gas consistent with microperforation. There was no evidence of any abscess. The patient was noticed to have leukocytosis. Provided the patient's history of present illness and the diagnostic findings, a clinical decision was made to admit the patient to inpatient setting to have him further evaluated. The patient was admitted to inpatient medical/surgical floor. The patient was kept n.p.o. The patient was started on empiric antibiotics, including coverage for anaerobes. The patient was started on IV fluids. The patient was provided with adequate pain control. A general surgery consult was called on this patient. The patient was emergently taken to the OR by general surgery and the patient underwent a sigmoid colon resection with end colostomy. Postoperatively , the patient was transferred to medical/surgical floor. The patient was maintained on adequate pain control. Initially, the patient was maintained on a Dilaudid PREPARATION SUPERVISOR for pain control, which was later discontinued. The patient was gradually started on a clear liquid diet, and the patient's diet was advanced as tolerated to a regular consistency diet. The patient had some issues with oral intolerance, which was relieved with the discontinuation of Dilaudid PREPARATION SUPERVISOR. The patient started having bowel function. The patient was seen and evaluated by the ostomy nurse. The patient was taught about colostomy care. Meanwhile, the patient's abdominal abscess culture showed positive E. coli and Enterococcus species. The patient was continued on antibiotics. There was no evidence of any septic shock. The patient was noticed to have borderline elevated blood pressure during the patient's hospital course. The patient verbalizes that at one point of time, he was started on antihypertensives by his primary care physician, but later this was discontinued because he became hypotensive. Hence, the patient was not started on any routine antihypertensives. The patient was maintained on p.r.n. antihypertensives. Ideally, the patient needs outpatient followup to ensure he does not have any persistent hypertension. In that case, the patient needs to be started on appropriate antihypertensives. The current episodes of hypertension could be most probably secondary to the stress from surgery and also because of the pain from surgery. The patient has a history of dyslipidemia. The patient verbalized that he was on Lipitor 20 mg at home, but he discontinued at some point of time. The patient's fasting lipid panel was satisfactory. The patient had a stable hospital course. The patient was also seen and evaluated by physical therapy. The patient recovered well from the surgery. The patient was cleared by general surgery to be discharged home. The patient verbalized adequate pain control. DISPOSITION/PLAN: The patient will be discharged home today. The patient was instructed to take a regular diet as tolerated. He was instructed to keep the incisions clean and dry and to use mild soap and pat dry the incisions. He was instructed to check with the surgeon regarding restrictions for showering. He was instructed to take pain medications as needed and to finish the course of antibiotics. He was instructed to call the surgeon or go to the nearest emergency room if he has severe abdominal pain despite pain medications. He was also instructed to call the surgeon or go to the nearest ER if he notices any bleeding or secretions coming out of the incision sites and also if he notices any blood in stool or if he has any persistent fevers or any other unusual signs or symptoms. He was instructed to follow up with Dr. Mauricio in 7 days for incision check. He was instructed to avoid heavy lifting of more than 25 pounds for 8 weeks. The patient verbalized understanding of his discharge instructions. CONDITION AT DISCHARGE: Stable. DISCHARGE MEDICATIONS: 1. Amoxicillin 500 mg p.o. q.8 hours x7 days. 2. Bactrim-DS 800/160 one tablet p.o. b.i.d. x7 days. 3. Tramadol 100 mg p.o. q.8h. p.r.n. pain. (#20 tablets). DIAGNOSTIC DATA AND PROCEDURES: 1. Sigmoid colon resection with end colostomy on 10/25/2016. 2. CT scan of the abdomen and pelvis on admission. Right sigmoid diverticulitis with numerous punctate localized extraluminal foci of gas consistent with microperforation. Mild localized induration of trace fluid, but no evidence of abscess. Multiple bilateral nonobstructing small renal calculi. No hydronephrosis bilaterally. Right inguinal fat-containing hernia, but no herniated bowel or strangulation. 3. Latest CBC: WBC 7.7, hemoglobin 12.1, hematocrit 35.9, platelet count 313 4. Latest BMP: Sodium 137, potassium 4.6, chloride 104, carbon dioxide 28, anion gap 15, BUN 12, creatinine 0.84, glucose 140, calcium 9.3. 5. Hemoglobin A1c 5.3. 6. Fasting lipid panel: Triglycerides 90, total cholesterol 133, LDL 83, HDL 32. 7. Blood culture x2, negative. 8. Urine culture. Negative. 9. Abdominal abscess culture positive for E. coli and Enterococcus species. I would like to thank Dr. Mauricio for seeing the patient, doing the necessary procedures, and providing clinical recommendations. The case and management of this patient was fully discussed with Dr. Rolon. Approximately 35 minutes was spent on coordinating the discharge on this patient. DON ROLON MD AM/NTS Conf#: [id number] DID#: [id number] CC: MIRTA HEMPHILL MD;*EndCC* MTDD
[2016-10-29] MEDS: DIPHENHYDRAMINE 50 MG INJ IV PRN (16:02)
== END 2016-10-29 16:15 | disposition home health service (06) | DRG 854 ==
LOC: E/R 10:07 → MS1 12:10
PROVIDERS: ADMIT Internal Medicine; ATTEND Internal Medicine
PROC: 0D1M0Z4 Bypass Descending Colon to Cutaneous, Open Approach (ICD-10-PCS; 2016-10-25)
PROC: 0DTN0ZZ Resection of Sigmoid Colon, Open Approach (ICD-10-PCS; principal; 2016-10-25 14:00)
DX: A41.9 Sepsis, unspecified organism (principal); K57.20 Diverticulitis of large intestine with perforation and abscess without bleeding; I10 Essential (primary) hypertension; E78.5 Hyperlipidemia, unspecified; D64.9 Anemia, unspecified
CPT/HCPCS: 36415; 74176; 80048; 80053; 80061; 81001; 81003; 83036; 83690; 83735; 84100; 84436; 84443; 84479; 85025; 85610; 87040; 87070; 87086; 93005; 96374; 96375; 97116; 97163; 97530; C9113; J0330; J0360; J0690; J1170; J1200; J1650; J1885; J2175; J2405; J2543; J2710; J2765; J3480; J7030

== ENCOUNTER 2017-01-10 06:58 | Emergency (ER) | payer BC ==
[~2017-01-10] VITALS: Ht 182.9 cm; Wt 89.0 kg
[~2017-01-10 06:58] MED LIST changes: +AMO500 PO; +BACTDS PO; -CIPR500T4 PO; -IBUP800T25 PO; +TRAM-40 PO; -VIC PO
[2017-01-10 07:01] VITALS: Ht 182.9 cm; Wt 89.0 kg
--- NOTE | 2017-01-10 07:40 | ERD ---
ER Documentation Chief Complaint Date/Time DATE: 01/10/17 TIME: 07:39 Chief Complaint dizzy today,head pressure HPI 51-year-old male who presented emergency department for dizziness and headache/ head pressure that is on and off for a couple of weeks but has increased today. Denies loss of consciousness, blurry vision, changes in vision, photophobia, facial pain, ear pain, throat pain, difficulty swallowing, neck pain, shoulder pain, chest pain, cough, hemoptysis, abdominal pain, back pain, loss of appetite , nausea, vomiting, hematochezia, diarrhea, constipation, urinary symptoms, bladder and bowel incontinences, extremity weakness, extremity tenderness, numbness or tingling sensation, difficulty walking, recent travel, recent exposure to illness, recent antibiotic use in the last 3 months, fever, chills. Past medical history of hyperlipidemia, hypertension, diverticulitis. Surgical history of colostomy. Medication: Losartan. Amlodipine. Atorvastatin. Denies family history of stroke. Social history: Works on a [employer] service. Denies smoking, use of alcohol, use of illegal drugs. ROS All systems reviewed and are negative except as per history of present illness. Medications Home Meds Active Scripts Meclizine Hcl* (Meclizine Hcl*) 25 Mg Tablet, 25 MG PO Q8H Y for DIZZINESS for 10 Days, TAB Prov:ROCKY ÁLVAREZ 01/10/17 Amoxicillin* (Amoxicillin*) 500 Mg Cap, 500 MG PO Q8 for 7 Days, #21 CAP Prov:DON MARTINEZ [employer] 10/29/16 Sulfamethoxazole-Trimethoprim* (Bactrim* DS) 800-160 Mg Tab, 1 TAB PO BID for 7 Days, #14 TAB Prov:DON MARTINEZ [employer] 10/29/16 Tramadol Hcl* (Ultram*) 50 Mg Tablet, 100 MG PO Q8, #20 TAB Prov:DON MARTINEZ [employer] 10/29/16 Allergies Allergies: Coded Allergies: No Known Allergy (Unverified , 09/21/11) PMhx/Soc History of Surgery: Yes (hernia repair; lithotripsy) Anesthesia Reaction: No Hx Neurological Disorder: Yes (anxiety) Hx Respiratory Disorders: No Hx Cardiac Disorders: No Hx Psychiatric Problems: No Hx Miscellaneous Medical Probl: No Hx Alcohol Use: No Hx Substance Use: No Hx Tobacco Use: No Physical Exam Vitals Vital Signs Date Time Temp Pulse Resp B/P Pulse Ox O2 Delivery O2 Flow Rate FiO2 01/10/17 07:01 98.1 88 18 144/81 99 Physical Exam CONSTITUTIONAL: Well-appearing; well-nourished; in no apparent distress. HEAD: Normocephalic; atraumatic. EYES: Conjunctiva clear, sclera non-icteric, EOM intact. PERRL Ears: Hearing intact. EACs clear, TMs non-bulging, non-inflamed, translucent & mobile, ossicles normal appearance, No obstructions, no erythema, no discharges Nose: No obstructions. No polyps. No external lesions. Mucosa non-inflamed. No external lesions, septum and turbinates normal. No rhinorrhea. No discharges. Frontal sinus is non-tender to palpation. Maxillary sinus is non-tender to palpation. MOUTH: Moist mucous membranes, no lesion, no obstructions, no vesicles, no thrush, patent airway Throat: Uvula in midline. Right tonsil is +1 with no erythema, no exudate. Left tonsil is +1 with no erythema, no exudate. Tolerating secretions well. Good gag reflex. Patent airway. Neck: Supple, without lesions, bruits, or adenopathy. No mass. Thyroid non- enlarged and non-tender to palpation. CHEST: Symmetrical chest. Respirations even and not labored. No retractions noted. CARDIOVASCULAR: Normal S1, S2. RRR. No murmurs, gallops. RESPIRATORY: Normal chest excursion with respiration; breath sounds clear and equal bilaterally; no wheezes, rhonchi, or rales. Breathing even and unlabored. Speaking in clear, full, and complete sentences w/ ease. ABDOMEN: Normal bowel sounds normal. Soft, round, non-distended, non-guarding, no tenderness, no rebound, no organomegaly, no masses, no pulsating abdominal mass. No hernia. No peritoneal signs. : No CVA tenderness. BACK: Symmetrical shoulder. Spine is midline without deformity, tenderness. No evidence of trauma or deformity. PELVIS: Stable pelvis. No evidence of trauma or deformity. MUSCULOSKELETAL: Normal gait and station. No misalignment, asymmetry, crepitation, defects, tenderness, masses, effusions, decreased range of motion, instability, atrophy or abnormal strength or tone in the head, neck, spine, ribs , pelvis or extremities. No calf tenderness. NEUROVASCULAR: Distal pulses are present. Pedal pulse are present, equal, and normal. Capillary refills are < 2 seconds. NEUROLOGIC: Alert and oriented x4. Speaks full and clear sentences. Cranial Nerves II-XII normal. Sensation to pain, touch, and proprioception normal. Grossly unremarkable. No neurologic deficits. Romberg test is negative. PSYCHOLOGICAL: The patients mood and manner are appropriate. No hallucinations , delusions. Not SI. Not HI. Has the capacity to decide for self SKIN: Normal for age and ethnicity; warm; dry; good turgor; no apparent lesions or exudates. No rashes, hives, discoloration. Intact. Results 24 hrs Current Medications Medications (Trade) Dose Ordered Sig/Nasra Route PRN Reason Start Time Stop Time Status Last Admin Dose Admin Lorazepam (Ativan) 0.5 mg ONCE ONCE PO 01/10/17 08:30 01/10/17 08:31 DC 01/10/17 08:32 Procedures/MDM Examination: Please see physical examination Disease process, medical treatment was explained to the patient and family member. They verbalized understanding and agreed with the diagnostic tests, medical treatment, and follow-up care. Radiology. CT of the brain. Impression: No evidence of acute intracranial pathology. The brain is normal in appearance. Treatment: Ativan p.o. Re-evaluation: Denies headache, dizziness, blurry vision, neck pain, shoulder pain, chest pain, back pain, abdominal pain, nausea, vomiting. No episode of emesis in the emergency department. Cranial nerves II through XII are intact. Romberg test is negative. No neurovascular deficits. No neurological deficits. Consultation: None. Differential diagnosis: Subarachnoid hemorrhage versus stroke versus headache versus dizziness versus vertigo Medical decision makin-year-old male who presented emergency department for dizziness and headache/head pressure that is on and off for a couple of weeks but has increased today. Patient's complaint, patient's history about his complaint, my physical findings, diagnostic test results, my reevaluation are consistent with final diagnosis of headache/dizziness. Medications prescribed are the following: Antivert/meclizine. Patient and family member are made aware of the side effects and adverse reactions of the medications prescribed. Instructed on when to seek emergent and medical attention in case allergic/anaphylactic reactions or severe side effects and or adverse reactions to medications. Patient and family member verbalized understanding. Patient instructed Instructed to follow-up with his PCP in 24-48 hours. Instructed to Call 911 for chest pain, shortness of breath. Advised to come back here in ED as soon as possible for severity of symptoms which includes but not limited to: any new symptoms; shortness of breath/difficulty of breathing; cardiovascular changes; severe gastrointestinal symptoms; signs and symptoms of bleeding and or infection; signs of compartment syndrome/neurovascular changes; neurological changes/deficits. Patient and family member verbalized understanding. Upon discharge, patient is alert and oriented x 4, speaks full and clear sentences, denies pain, has no neurological deficits, has no neurovascular deficits, difficulty of breathing. Breathing even and unlabored. Lung sounds are clear to auscultation. Not in distress. Appears comfortable. Ambulatory with steady gait. Appears satisfied with care provided here in ED. Departure Diagnosis: Primary Impression: Dizziness Additional Impression: Head ache Condition: Stable Additional Instructions: Follow-up with PCP in the next 24-48 hours. Come back here in the emergency department for any new symptoms or any worsening of symptoms. Patient and his significant other verbalized understanding. ROCKY ÁLVAREZ January 10, 2017 07:40
--- NOTE | 2017-01-10 08:21 | RADRPT ---
PROCEDURE: CT Brain without contrast. CLINICAL INDICATION: headache/dizziness TECHNIQUE: A CT of the brain was performed on a multidetector CT scanner utilizing axial imaging f rom the skull base through the vertex without IV contrast. Multiplanar reformatted images were made . Images were reviewed on a PACS workstation. The CTDIvol is 45 mGy and the DLP is 720 no mGycm. COMPARISON: None FINDINGS: There is no intracranial hemorrhage, mass effect, or midline shift. No extra-axial fluid collection is seen. The ventricles and sulci are normal in size and configuration. The density of the brain is normal, and the serrano white matter differentiation appears well-preserved. The visualized paranasal sinuses and osseous structures are grossly unremarkable. IMPRESSION: 1. No evidence of acute intracranial pathology. 2. The brain is normal in appearance. .Ab Velazquez MD, MD Date Time Electronically viewed and signed by .Ab Velazquez MD, on 01/10/2017 08:21 .A/
[2017-01-10] MEDS ORDERED: LORAZEPAM 0.5 MG TAB PO ONE (08:30)
[2017-01-10] MEDS ORDERED: MECL-77 PO (08:35)
== END 2017-01-10 08:54 | disposition home or self-care (01) ==
LOC: FTE 06:58
DX: R42 Dizziness and giddiness (principal); R51 Headache; I10 Essential (primary) hypertension
CPT/HCPCS: 70450